=== PATIENT | male | born 1955 | race Caucasian/White ===

== ENCOUNTER 2023-11-14 07:10 | Day surgery (SDC) | payer OTHER, BC ==
[2023-11-12 10:09] VITALS: BMI 25.5
[2023-11-14] MEDS ORDERED: PROPOFOL 160 ML ONE (07:16)
[2023-11-14 07:38] VITALS: RESP 18
[2023-11-14 09:17] VITALS: TEMP 97.5
[2023-11-14 09:28] VITALS: BP 135/75; PULSE 65
== END 2023-11-14 09:40 | disposition home or self-care (01) ==
LOC: FASU-ENDO 07:10
PROVIDERS: ATTEND Internal Medicine Gastroenterology
PROC: 0DBH8ZX Excision of Cecum, Via Natural or Artificial Opening Endoscopic, Diagnostic (ICD-10-PCS; principal; 2023-11-14 08:26)
DX: Z12.11 Encounter for screening for malignant neoplasm of colon (principal); D12.0 Benign neoplasm of cecum
CPT/HCPCS: 88305-TC